=== PATIENT | male | born 1980 | race Caucasian/White ===

== ENCOUNTER → 2016-09-15 | Outpatient (CLI) | payer BC ==
[2016-09-15 09:13] LABS: CHLORIDE,CL 105 mmol/L (98-110); SODIUM,NA 142 mmol/L (136-146)
== END ==
LOC: MW.CHIM 08:25
PROVIDERS: ATTEND Internal Medicine
DX: Z00.00 Encounter for general adult medical examination without abnormal findings (principal); I10 Essential (primary) hypertension
CPT/HCPCS: 36415; 80053; 80061; 85025

== ENCOUNTER 2018-09-03 12:04 | Emergency (ER) | payer BC ==
--- NOTE | 2018-09-03 12:10 | EDM.PDOC ---
ED HPI GENERAL MEDICAL PROBLEM - General Stated Complaint: chest pain Time Seen by Provider: 09/03/18 12:10 Source of Information: Reports: Patient - History of Present Illness INITIAL COMMENTS - FREE TEXT/NARRATIVE: HISTORY AND PHYSICAL: History of present illness: [Patient with asthma and shortness of breath presents to emergency room, he did have some episodic dizziness which prompted him to take a nitroglycerin his never required his nitroglycerin before he does have history of [place] 7 years prior had seen him in [place] at that time and sent him to [place] which resulted in stenting of the LAD, at no time today as he had chest pain no pain associated with arm neck or jaw resource He arrives in no distress no pursed lip breathing no obvious or apparent labored breathing his chest is tight on the initial exam DuoNeb and Solu-Medrol of resolved his symptoms Currently he has no fever nausea vomiting diarrhea constipation chest pain shortness breath headache dizziness or palpitation no bowel or urine symptoms Review of systems: As per history of present illness and below otherwise all systems reviewed and negative. Past medical history: As per history of present illness and as reviewed below otherwise noncontributory. Surgical history: As per history of present illness and as reviewed below otherwise noncontributory. Social history: No reported history of drug or alcohol abuse. Family history: As per history of present illness and as reviewed below otherwise noncontributory. Physical exam: HEENT: Atraumatic, normocephalic, pupils reactive, negative for conjunctival pallor or scleral icterus, mucous membranes moist, throat clear, neck supple, nontender, trachea midline. Lungs: Clear to auscultation, breath sounds equal bilaterally, chest nontender. Heart: S1S2, regular, negative for clicks, rubs, or JVD. Abdomen: Soft, nondistended, nontender. Negative for masses or hepatosplenomegaly. Negative for costovertebral tenderness. Pelvis: Stable nontender. Genitourinary: Deferred. Rectal: Deferred. Extremities: Atraumatic, negative for cords or calf pain. Neurovascular unremarkable. Neuro: Awake, alert, oriented. Cranial nerves II through XII unremarkable. Cerebellum unremarkable. Motor and sensory unremarkable throughout. Exam nonfocal. Diagnostics: [EBC CMP troponin] EKG Chest 1 view Therapeutics: [Renal saline Solu-Medrol 125 mg IV DuoNeb Azithromycin/Z-Moses Prednisone continue inhalers as directed DuoNeb's provided ] Impression: [ asthma exacerbation ] Definitive disposition and diagnosis as appropriate pending reevaluation and review of above. shoudler blades Pain Score (Numeric/FACES): 2 - Related Data Allergies Allergy/AdvReac Type Severity Reaction Status Date / Time Hay Fever Allergy Cannot Uncoded 09/03/18 12:17 Remember Home Meds: Home Meds Albuterol Sulfate [Proair Hfa] 0 puff INH ASDIRECTED 03/17/14 [History] Aspirin [Halfprin] 81 mg PO DAILY 03/17/14 [History] Clopidogrel [Plavix] 0 mg PO ASDIRECTED 03/17/14 [History] Metoprolol Unknown Type 0 mg PO ASDIRECTED 03/17/14 [History] atorvaSTATin [Lipitor] 0 mg PO ASDIRECTED 03/17/14 [History] Omeprazole [Prilosec] 20 mg PO DAILY #30 capsule. 03/18/14 [Rx] ED ROS GENERAL - Review of Systems Review Of Systems: See Below ED EXAM, GENERAL - Physical Exam Exam: See Below Course - Vital Signs Last Recorded V/S: Last Vital Signs Temp 97.2 F 09/03/18 12:14 Pulse 86 09/03/18 12:47 Resp 18 09/03/18 12:14 BP 125/83 09/03/18 13:12 Pulse Ox 98 09/03/18 12:14 - Orders/Labs/Meds Orders: Active Orders 24 hr Category Date Time Status EKG Documentation Completion [RC] STAT Care 09/03/18 12:11 Active RT Aerosol Therapy [RC] ASDIRECTED Care 09/03/18 12:51 Active UA RFX WENDY AND CULT IF INDIC [URIN] Stat Lab 09/03/18 12:11 Ordered Labs: Laboratory Tests 09/03/18 09/03/18 09/03/18 Range/Units 12:40 12:40 12:40 WBC 9.36 (4.0-11.0) K/uL RBC 5.10 (4.50-5.90) M/uL Hgb 15.5 (13.0-17.0) g/dL Hct 45.8 (38.0-50.0) % MCV 89.8 (80.0-98.0) fL MCH 30.4 (27.0-32.0) pg MCHC 33.8 (31.0-37.0) g/dL RDW Std Deviation 44.2 (28.0-62.0) fl RDW Coeff of Shelly 14 (11.0-15.0) % Plt Count 305 (150-400) K/uL MPV 10.30 (7.40-12.00) fL Neut % (Auto) 64.9 (48.0-80.0) % Lymph % (Auto) 26.4 (16.0-40.0) % [place] % (Auto) 7.1 (0.0-15.0) % Eos % (Auto) 1.3 (0.0-7.0) % Baso % (Auto) 0.3 (0.0-1.5) % Neut # (Auto) 6.1 H (1.4-5.7) K/uL Lymph # (Auto) 2.5 H (0.6-2.4) K/uL [place] # (Auto) 0.7 (0.0-0.8) K/uL Eos # (Auto) 0.1 (0.0-0.7) K/uL Baso # (Auto) 0.0 (0.0-0.1) K/uL Nucleated RBC % 0.0 /100WBC Nucleated RBCs # 0 K/uL INR 0.93 Sodium 140 (136-148) mmol/L Potassium 4.1 (3.5-5.1) mmol/L Chloride 104 (98-107) mmol/L Carbon Dioxide 25.8 (21.0-32.0) mmol/L BUN 17 (7.0-18.0) mg/dL Creatinine 0.8 (0.8-1.3) mg/dL Est Cr Clr Drug Dosing 133.34 mL/min Estimated GFR (MDRD) > 60.0 ml/min Glucose 106 (74-106) mg/dL Calcium 9.3 (8.5-10.1) mg/dL Total Bilirubin 0.5 (0.2-1.0) mg/dL AST 19 (15-37) IU/L ALT 34 (14-63) IU/L Alkaline Phosphatase 51 (46-116) U/L Troponin I < 0.050 (0.000-0.056) ng/mL Total Protein 8.1 (6.4-8.2) g/dL Albumin 4.2 (3.4-5.0) g/dL Globulin 3.9 (2.6-4.0) g/dL Albumin/Globulin Ratio 1.1 (0.9-1.6) Meds: Medications Discontinued Medications Generic Name Dose Route Start Last Admin Trade Name Chenteq PRN Reason Stop Dose Admin Albuterol/Ipratropium 3 ml 09/03/18 12:51 09/03/18 12:56 Duoneb 3.0-0.5 Mg/3 Ml NEB 09/03/18 12:52 3 ml ONETIME ONE Administration Enalaprilat 1.25 mg 09/03/18 12:33 09/03/18 13:12 Vasotec Iv IVPUSH 09/03/18 12:34 Not Given ONETIME ONE Sodium Chloride 1,000 mls @ 999 mls/hr 09/03/18 12:11 09/03/18 12:38 Normal Saline IV 09/03/18 13:11 999 mls/hr STAT ONE Administration Methylprednisolone Sodium Succinate 125 mg 09/03/18 13:34 09/03/18 13:50 Solu-Medrol IVPUSH 09/03/18 13:35 125 mg ONETIME ONE Administration Metoprolol Tartrate 5 mg 09/03/18 12:30 09/03/18 12:47 Lopressor IVPUSH 09/03/18 12:41 5 mg Q5M BRANDY Administration Departure - Departure Time of Disposition: 14:17 Disposition: Home, Self-Care 01 Condition: Good Clinical Impression: Asthma exacerbation - Discharge Information Additional Instructions: The following information is given to patients seen in the emergency department who are being discharged to home. This information is to outline your options for follow-up care. We provide all patients seen in our emergency department with a follow-up referral. The need for follow-up, as well as the timing and circumstances, are variable depending upon the specifics of your emergency department visit. If you don't have a primary care physician on staff, we will provide you with a referral. We always advise you to contact your personal physician following an emergency department visit to inform them of the circumstance of the visit and for follow-up with them and/or the need for any referrals to a consulting specialist. The emergency department will also refer you to a specialist when appropriate. This referral assures that you have the opportunity for follow-up care with a specialist. All of these measure are taken in an effort to provide you with optimal care, which includes your follow-up. Under all circumstances we always encourage you to contact your private physician who remains a resource for coordinating your care. When calling for follow-up care, please make the office aware that this follow-up is from your recent emergency room visit. If for any reason you are refused follow-up, please contact the [facility] emergency department at and asked to speak to the emergency department charge nurse. - My Orders Last 24 Hours: My Active Orders 09/03/18 12:11 EKG Documentation Completion [RC] STAT UA RFX WENDY AND CULT IF INDIC [URIN] Stat 09/03/18 12:51 RT Aerosol Therapy [RC] ASDIRECTED - Assessment/Plan Last 24 Hours: My Active Orders 09/03/18 12:11 EKG Documentation Completion [RC] STAT UA RFX WENDY AND CULT IF INDIC [URIN] Stat 09/03/18 12:51 RT Aerosol Therapy [RC] ASDIRECTED
[2018-09-03] MEDS ORDERED: Sodium Chloride 0.9% 1,000 ML IV ONE (12:11)
[2018-09-03] MEDS ORDERED: Metoprolol Tartrate 5 MG/5 ML SDV IVPUSH SCH (12:30)
[2018-09-03] MEDS ORDERED: Enalaprilat 1.25 MG/ML SDV IVPUSH ONE (12:33)
[2018-09-03] MEDS ORDERED: Albuterol/Ipratropium 3.0-0.5 MG/3 ML Neb Soln NEB ONE (12:51)
--- NOTE | 2018-09-03 12:55 | CR ---
EXAMINATION: Portable chest radiograph. HISTORY: Pain. FINDINGS: The trachea is midline. The cardiomediastinal silhouette is within normal limits. No pulmonary infiltrates, effusions or pneumothorax. Osseous structures appear unremarkable. IMPRESSION: No acute cardiopulmonary process.
[2018-09-03 13:19] LABS: CHLORIDE,CL 104 mmol/L (98-107); SODIUM,NA 140 mmol/L (136-148)
[2018-09-03] MEDS ORDERED: methylPREDNISolone Sodium Succinate 125 MG/2 ML SDV IVPUSH ONE (13:34)
[2018-09-03 14:14] VITALS: BP 124/75
== END 2018-09-03 14:25 | disposition home or self-care (01) ==
LOC: MW.ED 12:04
DX: J45.901 Unspecified asthma with (acute) exacerbation (principal); Z79.899 Other long term (current) drug therapy; Z79.82 Long term (current) use of aspirin
CPT/HCPCS: 71045; 80053; 84484; 85025; 85610; 93005; 96361; 96374; 96375; 99285; J2930; J3490; J7040; 99283; J7620-GY

== ENCOUNTER 2021-04-26 08:12 | Emergency (ER) | payer BC ==
[2021-04-26] MEDS ORDERED: Aspirin 81 MG Tab.Chew PO ONE (08:27)
[2021-04-26] MEDS ORDERED: Sodium Chloride 0.9% 1,000 ML IV ONE (08:27)
--- NOTE | 2021-04-26 08:30 | EDM.PDOC ---
ED HPI GENERAL MEDICAL PROBLEM - General Chief Complaint: Chest Pain Stated Complaint: chest/back discomfort dizzy Time Seen by Provider: 04/26/21 08:14 Source of Information: Reports: Patient History Limitations: Reports: No Limitations - History of Present Illness INITIAL COMMENTS - FREE TEXT/NARRATIVE: 41-year-old male past medical history obesity, CAD status post stent roughly 10 years ago presents for multiple complaints. Patient notes that he was in normal state of health and about a week ago had a sudden onset incidence of dizziness, room spinning sensation lasting for about 10 minutes and then completely resolving. Over the last 2 days patient has noted pain in his mid substernal chest radiating to his upper back. He notes this is worse when taking a deep breath in or bending over. He denies any associated shortness of breath, fevers, cough. This morning he noted a generalized headache, head "fullness", lightheaded, feeling "off" sensation. Does report continued mild CP/back pain. Patient notes negative stress test around 1-yr ago. chest Pain Score (Numeric/FACES): 5 - Related Data Allergies Allergy/AdvReac Type Severity Reaction Status Date / Time Hay Fever Allergy Cannot Uncoded 04/26/21 08:26 Remember Home Meds: Home Meds Albuterol Sulfate [Albuterol Sulfate Hfa] 8.5 gm IH DAILY 04/26/21 [History] Montelukast [Singulair] 10 mg PO DAILY 04/26/21 [History] Simvastatin 20 mg PO DAILY 04/26/21 [History] lisinopriL [Lisinopril] 10 mg PO DAILY 04/26/21 [History] Past Medical History HEENT History: Reports: None Cardiovascular History: Reports: High Cholesterol, Hypertension, NM Respiratory History: Reports: Asthma Gastrointestinal History: Reports: None Genitourinary History: Reports: None Musculoskeletal History: Reports: None Neurological History: Reports: None Psychiatric History: Reports: None Endocrine/Metabolic History: Reports: None Hematologic History: Reports: None Immunologic History: Reports: None Oncologic (Cancer) History: Reports: None Dermatologic History: Reports: None - Past Surgical History HEENT Surgical History: Reports: None Cardiovascular Surgical History: Reports: Coronary Artery Stent, Other (See Below) Other Cardiovascular Surgeries/Procedures: LAD stent Respiratory Surgical History: Reports: None GI Surgical History: Reports: None Male Surgical History: Reports: None Endocrine Surgical History: Reports: None Neurological Surgical History: Reports: None Musculoskeletal Surgical History: Reports: Other (See Below) Other Musculoskeletal Surgeries/Procedures:: knee surgery Oncologic Surgical History: Reports: None Dermatological Surgical History: Reports: None Social & Family History - Family History Family Medical History: No Pertinent Family History - Caffeine Use Caffeine Use: Reports: Coffee ED ROS GENERAL - Review of Systems Review Of Systems: Comprehensive ROS is negative, except as noted in HPI. ED EXAM, GENERAL - Physical Exam Exam: See Below Exam Limited By: No Limitations General Appearance: Alert, WD/WN, No Apparent Distress Ears: Hearing Grossly Normal Throat/Mouth: Normal Voice, No Airway Compromise Head: Atraumatic, Normocephalic Respiratory/Chest: No Respiratory Distress, Lungs Clear, Normal Breath Sounds, No Accessory Muscle Use Cardiovascular: Normal Peripheral Pulses, Regular Rate, Rhythm Extremities: Normal Inspection Neurological: Alert, Normal Cognition, Normal Gait Psychiatric: Normal Affect, Normal Mood Skin Exam: Warm, Dry, Intact, Normal Color #1 Interpretation EKG Date: 04/26/21 Time: 08:12 Rhythm: NSR Rate (Beats/Min): 74 [place]: Normal P-Wave: Present QRS: Normal ST-T: Normal QT: Normal DC/PQ Interval: 144 EKG Interpretation Comments: unremarkable EKG, no acute ischemic changes identified Course - Vital Signs Last Recorded V/S: Last Vital Signs Temp 97.3 F 04/26/21 08:27 Pulse 76 04/26/21 09:56 Resp 18 04/26/21 09:56 BP 146/95 H 04/26/21 09:56 Pulse Ox 96 04/26/21 09:56 - Orders/Labs/Meds Orders: Active Orders 24 hr Category Date Time Status Cardiac Monitoring [RC] . DIRECTED Care 04/26/21 08:27 Active Pulse Oximetry [RC] ASDIRECTED Care 04/26/21 08:27 Active TROPONIN I [CHEM] Stat Lab 04/26/21 11:15 Stop Req Heparin Sodium/0.45% NaCl [Heparin 25,000 Units in 1/2 Med 04/26/21 09:45 Active NS 500 ML] 500 ml IV TITRATE Saline Lock Insert [OM.PC] Stat Oth 04/26/21 08:27 Ordered Medication Orders Heparin Sodium/Sodium Chloride (Heparin 25,000 Units In 1/2 Ns 500 Ml) 500 mls @ 21.44 mls/hr IV TITRATE BRANDY; Protocol Last Admin: 04/26/21 09:54 Dose: 8 units/kg/hr, 21.44 mls/hr Documented by: MAYA Cosigned by: ERIN Labs: Laboratory Tests 04/26/21 04/26/21 04/26/21 Range/Units 08:18 08:18 08:18 WBC 7.93 (4.0-11.0) K/uL RBC 5.13 (4.50-5.90) M/uL Hgb 15.6 (13.0-17.0) g/dL Hct 45.4 (38.0-50.0) % MCV 88.5 (80.0-98.0) fL MCH 30.4 (27.0-32.0) pg MCHC 34.4 (31.0-37.0) g/dL RDW Std Deviation 44.4 (28.0-62.0) fl RDW Coeff of Shelly 14 (11.0-15.0) % Plt Count 349 (150-400) K/uL MPV 10.40 (7.40-12.00) fL Neut % (Auto) 51.6 (48.0-80.0) % Lymph % (Auto) 34.4 (16.0-40.0) % [place] % (Auto) 9.2 (0.0-15.0) % Eos % (Auto) 4.0 (0.0-7.0) % Baso % (Auto) 0.8 (0.0-1.5) % Neut # (Auto) 4.1 (1.4-5.7) K/uL Lymph # (Auto) 2.7 H (0.6-2.4) K/uL [place] # (Auto) 0.7 (0.0-0.8) K/uL Eos # (Auto) 0.3 (0.0-0.7) K/uL Baso # (Auto) 0.1 (0.0-0.1) K/uL Nucleated RBC % 0.0 /100WBC Nucleated RBCs # 0 K/uL APTT (18.6-31.3) SEC D-Dimer, Quantitative 0.25 (0.0-0.50) mg/L FEU Sodium 139 (136-148) mmol/L Potassium 4.3 (3.5-5.1) mmol/L Chloride 100 (98-107) mmol/L Carbon Dioxide 30.3 (21.0-32.0) mmol/L BUN 12 (7.0-18.0) mg/dL Creatinine 0.9 (0.8-1.3) mg/dL Est Cr Clr Drug Dosing 118.56 mL/min Estimated GFR (MDRD) > 60.0 ml/min Glucose 152 H (74-106) mg/dL Calcium 9.3 (8.5-10.1) mg/dL Magnesium 1.8 (1.8-2.4) mg/dL Total Bilirubin 0.5 (0.2-1.0) mg/dL AST 22 (15-37) IU/L ALT 54 (14-63) IU/L Alkaline Phosphatase 60 (46-116) U/L Troponin I 0.085 H* (0.000-0.056) ng/mL Total Protein 7.8 (6.4-8.2) g/dL Albumin 3.9 (3.4-5.0) g/dL Globulin 3.9 (2.6-4.0) g/dL Albumin/Globulin Ratio 1.0 (0.9-1.6) 04/26/21 Range/Units 08:18 WBC (4.0-11.0) K/uL RBC (4.50-5.90) M/uL Hgb (13.0-17.0) g/dL Hct (38.0-50.0) % MCV (80.0-98.0) fL MCH (27.0-32.0) pg MCHC (31.0-37.0) g/dL RDW Std Deviation (28.0-62.0) fl RDW Coeff of Shelly (11.0-15.0) % Plt Count (150-400) K/uL MPV (7.40-12.00) fL Neut % (Auto) (48.0-80.0) % Lymph % (Auto) (16.0-40.0) % [place] % (Auto) (0.0-15.0) % Eos % (Auto) (0.0-7.0) % Baso % (Auto) (0.0-1.5) % Neut # (Auto) (1.4-5.7) K/uL Lymph # (Auto) (0.6-2.4) K/uL Delta # (Auto) (0.0-0.8) K/uL Eos # (Auto) (0.0-0.7) K/uL Baso # (Auto) (0.0-0.1) K/uL Nucleated RBC % /100WBC Nucleated RBCs # K/uL APTT 27.6 (18.6-31.3) SEC D-Dimer, Quantitative (0.0-0.50) mg/L FEU Sodium (136-148) mmol/L Potassium (3.5-5.1) mmol/L Chloride (98-107) mmol/L Carbon Dioxide (21.0-32.0) mmol/L BUN (7.0-18.0) mg/dL Creatinine (0.8-1.3) mg/dL Est Cr Clr Drug Dosing mL/min Estimated GFR (MDRD) ml/min Glucose (74-106) mg/dL Calcium (8.5-10.1) mg/dL Magnesium (1.8-2.4) mg/dL Total Bilirubin (0.2-1.0) mg/dL AST (15-37) IU/L ALT (14-63) IU/L Alkaline Phosphatase (46-116) U/L Troponin I (0.000-0.056) ng/mL Total Protein (6.4-8.2) g/dL Albumin (3.4-5.0) g/dL Globulin (2.6-4.0) g/dL Albumin/Globulin Ratio (0.9-1.6) Meds: Medications Generic Name Dose Route Start Last Admin Trade Name Freq PRN Reason Stop Dose Admin Heparin Sodium/Sodium Chloride 500 mls @ 21.44 mls/hr 04/26/21 09:45 04/26/21 09:54 Heparin 25,000 Units In 1/2 Ns 500 Ml IV 8 units/kg/hr TITRATE BRANDY 21.44 mls/hr Administration Protocol 8 UNITS/KG/HR Discontinued Medications Generic Name Dose Route Start Last Admin Trade Name Freq PRN Reason Stop Dose Admin Aspirin 243 mg 04/26/21 08:27 04/26/21 08:46 Aspirin 81 Mg Tab.Chew PO 04/26/21 08:28 243 mg ONETIME ONE Administration Heparin Sodium (Porcine) 4,000 units 04/26/21 09:16 04/26/21 09:44 Heparin Sodium 5,000 Units/Ml Vial IVPUSH 04/26/21 09:17 4,000 units .BOLUS ONE Administration Protocol Sodium Chloride 1,000 mls @ 999 mls/hr 04/26/21 08:27 04/26/21 08:46 Normal Saline IV 04/26/21 09:27 999 mls/hr .Bolus ONE Administration Heparin Sodium/Sodium Chloride 500 mls @ 30.481 mls/hr 04/26/21 09:30 Heparin 25,000 Units In 1/2 Ns 500 Ml IV TITRATE BRANDY Protocol 12 UNITS/KG/HR Heparin Sodium/Sodium Chloride 500 mls @ 30.481 mls/hr 04/26/21 09:45 Heparin 25,000 Units In 1/2 Ns 500 Ml IV TITRATE BRANDY Protocol 12 UNITS/KG/HR - Re-Assessments/Exams Free Text/Narrative Re-Assessment/Exam: 04/26/21 08:49 Patient declines COVID testing as he did recently have COVID roughly a month and a half ago 04/26/21 09:01 Patient's troponin is elevated at 0.085. Patient did receive aspirin. We will reach out to [facility] for transfer of care. 04/26/21 09:05 Patient has actually received care from [facility] and would prefer transfer to their facility if beds are available. 04/26/21 09:[address] Powell cardiology and Dr. Donald hospitalist agrees to accept under his service. Spoke with the physicians regarding heparin drip vs lovenox bolus and they would prefer a drip; the bolus+drip protocol has been ordered. Will continue medical observation as patient awaits transfer of care to [facility] 04/26/21 10:09 Repeat troponin is cancelled as EMS is here to transport patient prior to collection. Patient is stable with unremarkable vitals and no change in symptoms at time of transfer. Departure - Departure Time of Disposition: 09:30 Disposition: Refer to Observation Condition: Fair Clinical Impression: NSTEMI (non-ST elevated myocardial infarction) - Discharge Information Forms: ED Department Discharge Critical Care Note - Critical Care Note Total Time (mins): 35 Sepsis Event Note (ED) - Focused Exam Vital Signs: Vital Signs Temp Pulse Resp BP Pulse Ox 04/26/21 09:56 76 18 146/95 H 96 04/26/21 09:11 71 18 128/81 98 04/26/21 08:27 97.3 F 86 18 158/68 H 96 - My Orders Last 24 Hours: My Active Orders 04/26/21 08:27 Cardiac Monitoring [RC] . DIRECTED Pulse Oximetry [RC] ASDIRECTED Saline Lock Insert [OM.PC] Stat 04/26/21 09:45 Heparin Sodium/0.45% NaCl [Heparin 25,000 Units in 1/2 NS 500 ML] 500 ml IV TITRATE 04/26/21 11:15 TROPONIN I [CHEM] Stat - Assessment/Plan Last 24 Hours: My Active Orders 04/26/21 08:27 Cardiac Monitoring [RC] . DIRECTED Pulse Oximetry [RC] ASDIRECTED Saline Lock Insert [OM.PC] Stat 04/26/21 09:45 Heparin Sodium/0.45% NaCl [Heparin 25,000 Units in 1/2 NS 500 ML] 500 ml IV TIT RATE 04/26/21 11:15 TROPONIN I [CHEM] Stat
[2021-04-26 08:56] LABS: BLOOD UREA NITROGEN,BUN 12 mg/dL (7.0-18.0); CARBON DIOXIDE,CO2 30.3 mmol/L (21.0-32.0); CHLORIDE,CL 100 mmol/L (98-107); GLUCOSE RANDOM 152 mg/dL (74-106); POTASSIUM,K 4.3 mmol/L (3.5-5.1); SODIUM,NA 139 mmol/L (136-148)
--- NOTE | 2021-04-26 08:56 | CR ---
INDICATION: Chest pain. TECHNIQUE: Chest 1 views. COMPARISON: September 03, 2018. FINDINGS: Cardiovascular and mediastinum: Heart size and vasculature are normal in caliber and appearance. Lungs and pleural spaces: Lungs are clear. No sign of infiltrate or mass. No sign of pleural effusion. No pneumothorax. Bones and soft tissues: No significant findings. IMPRESSION: No acute findings and no significant changes from the prior exam. Dictated by Nic Farris MD @ 04/26/2021 8:55:01 AM (Electronically Signed)
[2021-04-26] MEDS ORDERED: Heparin Sodium 5,000 Units/ML Vial IVPUSH ONE (09:16)
[2021-04-26] MEDS ORDERED: Heparin Sodium/0.45% NaCl 500 ML IV SCH ×3 (09:30→09:45)
[2021-04-26 09:57] VITALS: BP 146/95; PULSE 76
== END 2021-04-26 10:45 | disposition other institution (70) ==
LOC: MW.ED 08:12
DX: I21.4 Non-ST elevation (NSTEMI) myocardial infarction (principal); E78.00 Pure hypercholesterolemia, unspecified; I10 Essential (primary) hypertension; I25.2 Old myocardial infarction; Z91.09 Other allergy status, other than to drugs and biological substances; Z79.899 Other long term (current) drug therapy
CPT/HCPCS: 36415; 71045; 80053; 83735; 84484; 85025; 85379; 85730; 93005; 96365; 99285; A9270; J1644; J7030